=== PATIENT | female | born 1990 | race Caucasian/White ===

== ENCOUNTER 2023-01-22 20:52 | Emergency (ER) | payer OTHER ==
[~2023-01-22] VITALS: Ht 167.6 cm; Wt 56.7 kg
[2023-01-22] MEDS ORDERED: BETAXOLOL HCL10 MG (21:13)
[2023-01-22] MEDS ORDERED: ONDANSETRON ODT8 MG PO (23:49)
[2023-01-22] MEDS ORDERED: PEPCID20 MG PO (23:49)
== END 2023-01-23 00:09 | disposition home or self-care (01) ==
LOC: ER 20:52
DX: K52.89 Other specified noninfective gastroenteritis and colitis (principal); Z88.8 Allergy status to other drugs, medicaments and biological substances